=== PATIENT | female | born 2000 | race Hispanic/Latino ===

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

== ENCOUNTER 2020-12-19 19:46 | Emergency (ER) | payer OTHER ==
[~2020-12-19] VITALS: Ht 152.4 cm; Wt 43.1 kg
== END 2020-12-19 23:26 | disposition home or self-care (01) ==
LOC: ER 20:54
DX: R07.89 Other chest pain (principal); S20.212A Contusion of left front wall of thorax, initial encounter; X58.XXXA Exposure to other specified factors, initial encounter
CPT/HCPCS: 71045; 99283

== ENCOUNTER 2021-05-05 13:11 | Emergency (ER) | payer OTHER ==
[~2021-05-05] VITALS: Ht 154.9 cm; Wt 49.1 kg
[2021-05-05] MEDS ORDERED: ACETAMINOPHEN 325 MG TAB PO ONE (13:45)
[2021-05-05] MEDS ORDERED: KETOROLAC TROMETHAMINE 30 MG/ML VIAL IM ONE (13:45)
[2021-05-05] MEDS ORDERED: PREDNISOLO15 MG/5 ML PO (13:52)
[2021-05-05] MEDS ORDERED: IBUPROFEN100 MG/5 M PO (13:52)
[2021-05-05] MEDS ORDERED: KETOROLAC TROMETHAMINE 30 MG/ML VIAL ONE (13:57)
== END 2021-05-05 14:37 | disposition home or self-care (01) ==
LOC: FSED 13:13
DX: M25.511 Pain in right shoulder (principal); M62.838 Other muscle spasm
CPT/HCPCS: 73030; 96372; 99283; J1885

== ENCOUNTER 2024-08-12 10:46 | Emergency (ER) | payer OTHER ==
[~2024-08-12] VITALS: Ht 157.5 cm; Wt 58.7 kg
[~2024-08-12 10:46] MED LIST: IBUPROFEN100 MG/5 M PO; PREDNISOLO15 MG/5 ML PO
[2024-08-12 11:10] VITALS: PULSE 148; RESP 18; TEMP 102.8
[2024-08-12] MEDS ORDERED: IBUPROFEN 600 MG TAB PO ONE (11:30)
[2024-08-12] MEDS: ONDANSETRON HCL 4 MG ORAL DISINTEGRATING TAB PO ONE (11:49)
[2024-08-12] MEDS ORDERED: KETOROLAC TROMETHAMINE 30 MG/ML VIAL IM ONE (12:00)
[2024-08-12] MEDS ORDERED: AZITHROMYC200 MG/5 M PO (12:02)
[2024-08-12] MEDS ORDERED: ONDANSETRON ODT4 MG PO (12:02)
[2024-08-12] MEDS ORDERED: DIPHENHYDR12.5 MG/5 PO (12:02)
[2024-08-12 12:33] VITALS: BP 117/58; PULSE 142; RESP 20; TEMP 101.3; O2SAT 95
[2024-08-12] MEDS: KETOROLAC TROMETHAMINE 30 MG/ML VIAL IM STA (12:33)
== END 2024-08-12 12:34 | disposition home or self-care (01) ==
LOC: FSED 10:58
DX: R50.9 Fever, unspecified (principal); J10.1 Influenza due to other identified influenza virus with other respiratory manifestations; R11.2 Nausea with vomiting, unspecified; R00.0 Tachycardia, unspecified; R05.9 Cough, unspecified; K21.9 Gastro-esophageal reflux disease without esophagitis; R53.81 Other malaise; Z11.52 Encounter for screening for COVID-19
CPT/HCPCS: 0223U; 71046; 81003; 87400; 99284; J1885; Q0162